=== PATIENT | female | born 1950 | race Caucasian/White ===

== ENCOUNTER → 2017-08-30 | Outpatient (REF) | payer MEDICARE, OTHER | LOC: M SFHCWAGY 11:38 | PROVIDERS: ATTEND Nurse Practitioner Family | DX: Z12.4 Encounter for screening for malignant neoplasm of cervix (principal) ==

== ENCOUNTER → 2017-08-30 | Outpatient (CLI) | payer MEDICARE, OTHER ==
--- NOTE | 2017-08-30 13:54 | REPMRS ---
Patient History The patient states she had a clinical breast exam in 08/2017. Patient is postmenopausal. Family history of prostate cancer in paternal grandfather at age 50 or over. Reductions of both breasts, 2013. Took unspecified hormones for 14 years. Digital Woman Screen Mammo: August 30, 2017 - Exam #: [id number] Bilateral CC and MLO view(s) were taken. Technologist: Kelly Ramirez, Technologist Prior study comparison: June 15, 2016, digital woman screen mammo performed at [facility]. May 20, 2015, digital woman screen mammo performed at [facility]. April 22, 2014, digital woman screen mammo performed at [facility]. FINDINGS: There are scattered fibroglandular densities. There has been no change in the appearance of the mammogram from the prior studies. There is a mild amount of scattered fibroglandular density which is fairly symmetric. There is no interval development of dominant mass, architectural distortion, or clustered microcalcification suggestive of malignancy. ASSESSMENT: BI-RADS/ACR category 1 mammogram. Negative. Recommendation Routine screening mammogram in 1 year (for women over age 40). This mammogram was interpreted with the aid of an FDA-approved computer-aided dectection system. Electronically Signed By: Piter Romero MD 08/30/17 [id number]
== END ==
LOC: M WHC 11:25
PROVIDERS: ATTEND Nurse Practitioner Family
DX: Z12.31 Encounter for screening mammogram for malignant neoplasm of breast (principal); Z78.0 Asymptomatic menopausal state; Z98.890 Other specified postprocedural states; Z12.4 Encounter for screening for malignant neoplasm of cervix; Z12.12 Encounter for screening for malignant neoplasm of rectum; Z92.29 Personal history of other drug therapy
CPT/HCPCS: 82270; G0101; G0123; G0202

== ENCOUNTER → 2018-08-31 | Outpatient (CLI) | payer MEDICARE, OTHER | LOC: M WHC 11:12 | DX: Z12.31 Encounter for screening mammogram for malignant neoplasm of breast (principal); Z92.29 Personal history of other drug therapy; Z98.890 Other specified postprocedural states | CPT/HCPCS: 77067 ==